=== PATIENT | female | born 1955 | race African-American/Black ===

== ENCOUNTER → 2017-03-28 | Outpatient (CLI) | payer BC ==
--- NOTE | 2017-03-28 12:47 | KCIC ---
DATE: 03/28/2017. EXAM: MAMMO VIDAL SCREENING BILATERAL. HISTORY: Routine mammographic screening. COMPARISON: 02/02/2015. This study was interpreted with the benefit of Computerized Aided Detection (CAD). FINDINGS: The breast parenchyma shows scattered fibroglandular densities. Breast parenchyma level B.. There are no suspicious masses, microcalcifications or architectural distortion. A few scattered calcifications are benign. A nodule superolaterally on the left is stable and likely represents a benign lymph node. BI-RADS CATEGORY: 2 BENIGN FINDING(S). RECOMMENDED FOLLOW-UP: 12M 12 MONTH FOLLOW-UP. PQRS compliance statement: Patient information was entered into a reminder system with a target due date 03/28/2018 for the next mammogram. Mammography is a sensitive method for finding small breast cancers, but it does not detect them all and is not a substitute for careful clinical examination. A negative mammogram does not negate a clinically suspicious finding and should not result in delay in biopsying a clinically suspicious abnormality. "Our facility is accredited by the [employer]."
== END | disposition home or self-care (01) ==
LOC: KCIC MAMMO 09:56
PROVIDERS: ATTEND Obstetrics & Gynecology
DX: Z12.31 Encounter for screening mammogram for malignant neoplasm of breast (principal)
CPT/HCPCS: 77063; G0202; 77067

== ENCOUNTER → 2018-06-11 | Outpatient (CLI) | payer BC ==
--- NOTE | 2018-06-11 13:01 | KCIC ---
Indication: Postmenopausal TECHNIQUE: DEXA scan COMPARISON: Previous exam from 2007 FINDINGS: The bone mineral density in the left femoral neck measures 0.894 grams per centimeter square with T score of -0.4, previously -0.2. The bone mineral density at L1-L4 measures 0.974 g/sq cm with T score of -0.7, previously -0.7. IMPRESSION: Normal bone mineral density in the left femoral neck and lumbar spine. Electronically signed by: Cesar Guy DO (06/11/2018 12:57 PM) [id number]
--- NOTE | 2018-06-11 13:10 | KCIC ---
Bilateral digital screening mammograms with 3-D tomosynthesis: Reason for examination: Routine screening. Comparison is made to previous studies dated 03/28/2017 and 02/02/2015. Bilateral mammograms in CC and oblique projections were obtained with 2-D imaging and 3-D tomosynthesis imaging on a Siemens Inspiration unit and reviewed on the workstation. Interpretation was made with the benefit of CAD. The skin and nipples show no abnormalities. No abnormal axillary lymph nodes are seen. The breast parenchyma shows scattered fatty and fibroglandular density. (Breast density: Category B.) There continues to be a small nodule consistent with an intramammary lymph node at the 2:00 C position of the left breast. There are no new dominant masses, suspicious calcifications or architectural distortion. Impression: No evidence of malignancy. Recommend routine screening. BI-RAD Category 2: Benign. "Our facility is accredited by the [employer] Mammography [employer]." This patient's information has been entered into a reminder system for the patient to be notified with the results of her examination and a target date for the next mammogram. Electronically signed by: Kitty Cheema MD (06/11/2018 1:05 PM) [id number]
== END | disposition home or self-care (01) ==
LOC: KCIC MAMMO 10:30
PROVIDERS: ATTEND Family Medicine
DX: Z12.31 Encounter for screening mammogram for malignant neoplasm of breast (principal); Z13.820 Encounter for screening for osteoporosis; Z78.0 Asymptomatic menopausal state
CPT/HCPCS: 77063; 77067; 77080